=== PATIENT | female | born 1955 | race Caucasian/White ===

== ENCOUNTER 2017-03-19 02:06 | Emergency (ER) | payer BC ==
[2017-03-19 02:14] VITALS: BP 129/83
[2017-03-19] MEDS ORDERED: Midazolam 1 MG/ML 2 ML SDV IVPUSH ONE ×2 (02:49→03:22)
[2017-03-19] MEDS ORDERED: Sodium Chloride 0.9% 10 ML Syringe FLUSH PRN (02:49)
[2017-03-19] MEDS ORDERED: HYDROmorphone 1 MG/ML Syringe IVPUSH ONE (02:49)
[2017-03-19] MEDS ORDERED: Sodium Chloride 0.9% 1,000 ML IV SCH (03:00)
[2017-03-19] MEDS ORDERED: HYDROmorphone 1 MG/ML Syringe IVPUSH STA (03:22)
--- NOTE | 2017-03-19 03:47 | EDM.PDOC ---
ED HPI GENERAL MEDICAL PROBLEM - General Chief Complaint: Upper Extremity Injury/Pain Stated Complaint: "I THINK I BROKE MY LEFT WRIST" Time Seen by Provider: 03/19/17 02:41 - History of Present Illness INITIAL COMMENTS - FREE TEXT/NARRATIVE: Feel after gettin up to the bathroom. C/o left wrist pain and swelling Duration: Minutes: Location: Reports: Lower Extremity, Left Quality: Reports: Dull Severity: Severe Worsens with: Reports: Movement Left Arm Pain Score (Numeric/FACES): 3 - Related Data Allergies Allergy/AdvReac Type Severity Reaction Status Date / Time No Known Allergies Allergy Verified 03/19/17 02:09 Home Meds: Home Meds Aspirin [Lo-Dose Aspirin EC] 81 mg PO DAILY 03/19/17 [History] Past Medical History - Infectious Disease History Infectious Disease History: Reports: Other (See Below) Other Infectious Disease History: [place] [facility]IRUS Social & Family History - Tobacco Use Smoking Status *Q: Current Every Day Smoker Years of Tobacco use: 40 Packs/Tins Daily: 1 Second Hand Smoke Exposure: Yes Review of Systems - Review of Systems Review Of Systems: ROS reveals no pertinent complaints other than HPI. ED EXAM, GENERAL - Physical Exam Exam: See Below Free Text/Narrative:: obvious deformation of the left wrist noted with swelling and decreased rom. ED TRAUMA EXTREMITY PROCEDURES - Additional/Other Procedure(s) Other (Free Text) Procedure(s): After obtaining consent, an IV of NS was started on patient. the patient was placed on a instrumentation engineer, O2 sat monitor, and BP monitor. oxygen per nc was started. IV dilauded and Versed were given until adequate conscious sedation was achieved, and a closed reduction of the left wrist was performed straightening the obvious deformity in the wrist. post reduction x-rays showed some improvement in alignment. splint was placed while patient was still sedated. patient tolerated the procedure well with no complications noted. will extend the patents ER stay for a recovery period Course - Vital Signs Last Recorded V/S: Last Vital Signs Temp 96.8 F 03/19/17 02:13 Pulse 102 H 03/19/17 02:13 Resp 18 03/19/17 02:13 BP 129/83 03/19/17 02:13 Pulse Ox 100 03/19/17 02:13 - Orders/Labs/Meds Orders: Active Orders 24 hr Category Date Time Status Wrist 2V Rt [CR] Stat Exams 03/19/17 03:18 Taken Wrist Comp Min 3V Lt [CR] Stat Exams 03/19/17 02:29 Taken Sodium Chloride 0.9% [Normal Saline] 1,000 ml Med 03/19/17 03:00 Active IV ASDIRECTED Sodium Chloride 0.9% [Saline Flush] Med 03/19/17 02:49 Active 10 ml FLUSH ASDIRECTED PRN Saline Lock Insert [OM.PC] Routine Oth 03/19/17 02:49 Ordered Medication Orders Sodium Chloride (Normal Saline) 1,000 mls @ 100 mls/hr IV ASDIRECTED DARCY Sodium Chloride (Saline Flush) 10 ml FLUSH ASDIRECTED PRN PRN Reason: Keep Vein Open Meds: Medications Generic Name Dose Route Start Last Admin Trade Name Freq PRN Reason Stop Dose Admin Sodium Chloride 1,000 mls @ 100 mls/hr 03/19/17 03:00 Normal Saline IV ASDIRECTED DARCY Sodium Chloride 10 ml 03/19/17 02:49 Saline Flush FLUSH ASDIRECTED PRN Keep Vein Open Discontinued Medications Generic Name Dose Route Start Last Admin Trade Name Freq PRN Reason Stop Dose Admin Hydromorphone HCl 1 mg 03/19/17 02:49 Dilaudid IVPUSH 03/19/17 02:50 ONETIME ONE Hydromorphone HCl 1 mg 03/19/17 03:22 Dilaudid IVPUSH 03/19/17 03:23 Q1H STA Midazolam HCl 2 mg 03/19/17 02:49 Versed 1 Mg/Ml IVPUSH 03/19/17 02:50 ONETIME ONE Midazolam HCl 1 mg 03/19/17 03:22 Versed 1 Mg/Ml IVPUSH 03/19/17 03:23 ONETIME ONE Departure - Departure Time of Disposition: 08:00 (Will hold in extended ER for sedation recovery, and referral to ortho.) Disposition: Home, Self-Care 01 Condition: Good Clinical Impression: Fracture of radius and ulna, Wrist fracture - Discharge Information Instructions: Wrist Fracture Treated With Immobilization, [id number] Forms: ED Department Discharge Additional Instructions: Follow up with the clinic for referral to an ortho doctor in [place]. Take pain medications as prescribed. - My Orders Last 24 Hours: My Active Orders 03/19/17 02:29 Wrist Comp Min 3V Lt [CR] Stat 03/19/17 02:49 Sodium Chloride 0.9% [Saline Flush] 10 ml FLUSH ASDIRECTED PRN Saline Lock Insert [OM.PC] Routine 03/19/17 03:00 Sodium Chloride 0.9% [Normal Saline] 1,000 ml IV ASDIRECTED 03/19/17 03:18 Wrist 2V Rt [CR] Stat - Assessment/Plan Last 24 Hours: My Active Orders 03/19/17 02:29 Wrist Comp Min 3V Lt [CR] Stat 03/19/17 02:49 Sodium Chloride 0.9% [Saline Flush] 10 ml FLUSH ASDIRECTED PRN Saline Lock Insert [OM.PC] Routine 03/19/17 03:00 Sodium Chloride 0.9% [Normal Saline] 1,000 ml IV ASDIRECTED 03/19/17 03:18 Wrist 2V Rt [CR] Stat
[2017-03-19] MEDS ORDERED: Acetaminophen/HYDROcodone 325-5 MG Tab PO ONE (05:38)
== END 2017-03-19 07:55 | disposition home or self-care (01) ==
LOC: CC.ED 02:06 → MERGE 02:06 → CC.ED 07:55
DX: S52.502A Unspecified fracture of the lower end of left radius, initial encounter for closed fracture (principal); S52.602A Unspecified fracture of lower end of left ulna, initial encounter for closed fracture; F17.210 Nicotine dependence, cigarettes, uncomplicated; Z79.82 Long term (current) use of aspirin; W19.XXXA Unspecified fall, initial encounter; Y92.89 Other specified places as the place of occurrence of the external cause
CPT/HCPCS: 25605; 73100; 73110; 96361; 96374; 99283; A9270; J1170; J2250; J7030; J7050; 96375; 99152

== ENCOUNTER 2018-08-12 09:45 | Emergency (ER) | payer BC ==
[2018-08-12] MEDS ORDERED: Sodium Chloride 0.9% 1,000 ML IV ONE ×2 (10:01→12:52)
[2018-08-12] MEDS ORDERED: Acetaminophen 325 MG Tab PO ONE (10:10)
[2018-08-12] MEDS ORDERED: Sodium Chloride 0.9% 1,000 ML ONE (11:41)
[2018-08-12] MEDS ORDERED: Sodium Chloride 0.9% 1,000 ML IV SCH ×2 (12:00→15:30)
[2018-08-12] MEDS ORDERED: Iopamidol 612 MG/ML 100 ML Bottle IVPUSH ONE (12:04)
[2018-08-12] MEDS ORDERED: Ibuprofen 200 MG Tab PO ONE (12:51)
[2018-08-12] MEDS ORDERED: Levofloxacin/Dextrose 5%-Water 500 MG in Premix Bag 1 BAG IV ONE (12:52)
[2018-08-12 13:52] VITALS: BP 86/49
--- NOTE | 2018-08-12 14:07 | EDM.PDOC ---
ED HPI GENERAL MEDICAL PROBLEM - General Chief Complaint: General Stated Complaint: vomitting Time Seen by Provider: 08/12/18 10:35 Source of Information: Reports: Patient, Family () History Limitations: Reports: No Limitations - History of Present Illness INITIAL COMMENTS - FREE TEXT/NARRATIVE: States that on Sunday she had vomiting most of the day. She last vomited Sunday night. Has had some lose stools but not diarrhea. on and off since then. Does not know that if she had a fever over the weekend as she did not have a thermometer. She did not eat or drink much yesterday. She does have some lower left quadrant pain. Has not had any bloody stools. Was treated for Klebsiella UTI about a month ago and has felt well since then. Denies any dysuria at this time. Denies any other discomfort. When arriving here her temp was 104. and was tachycardic. Blood and urine cultures were obtained. Did have toe on her right foot amputated in January and it has been healing well. No redness noted to the foot. Onset: Gradual Location: Reports: Abdomen Associated Symptoms: Reports: Cough, Fever/Chills. Denies: Shortness of Breath Left Lower Abdominal Pain Score (Numeric/FACES): 4 - Related Data Allergies Allergy/AdvReac Type Severity Reaction Status Date / Time Sulfa (Sulfonamide Allergy Other Verified 08/12/18 10:49 Antibiotics) Home Meds: Home Meds Aspirin [Lo-Dose Aspirin EC] 81 mg PO DAILY 03/19/17 [History] Alendronate Sodium [Fosamax] 70 mg PO WEEKLY 10/01/17 [History] metFORMIN [Glucophage] 850 mg PO BID 10/01/17 [History] Clopidogrel [Plavix] 75 mg PO DAILY 08/12/18 [History] Gabapentin [Neurontin] 300 mg PO DAILY 08/12/18 [History] Gabapentin [Neurontin] 600 mg PO BEDTIME 08/12/18 [History] Lactobac Cmb #3/Fos/Pantethine [Probiotic & Acidophilus] 1 cap PO DAILY [History] Lisinopril 10 mg PO DAILY 08/12/18 [History] Multivitamin [Multivitamins] 1 tab PO DAILY 08/12/18 [History] Ubidecarenone [Coq-10] 1 tab PO DAILY 08/12/18 [History] Past Medical History Cardiovascular History: Reports: Hypertension, Other (See Below) Other Cardiovascular History: PAD Endocrine/Metabolic History: Reports: Diabetes, Type II - Infectious Disease History Infectious Disease History: Reports: Other (See Below) Other Infectious Disease History: [place] [facility]IR[facility] - Past Surgical History Musculoskeletal Surgical History: Reports: Amputation Other Musculoskeletal Surgeries/Procedures:: R SECOND TOE, L WRIST PLATE Social & Family History - Family History Family Medical History: Noncontributory - Tobacco Use Smoking Status *Q: Former Smoker Used Tobacco, but Quit: Yes Month/Year Tobacco Last Used: NOVEMBER 2017 - Recreational Drug Use Recreational Drug Use: No - Living Situation & Occupation Living situation: Reports: , with Spouse Occupation: Employed ED ROS GENERAL - Review of Systems Review Of Systems: See Below Constitutional: Reports: Fever, Weakness, Decreased Appetite HEENT: Reports: No Symptoms Respiratory: Reports: Cough. Denies: Shortness of Breath, Sputum Cardiovascular: Denies: Chest Pain, Edema GI/Abdominal: Reports: Abdominal Pain, Anorexia, Decreased Appetite. Denies: Bloody Stool : Denies: Dysuria, Frequency, Pain Musculoskeletal: Reports: No Symptoms Skin: Reports: No Symptoms Neurological: Reports: No Symptoms ED EXAM, GENERAL - Physical Exam Exam: See Below Exam Limited By: No Limitations General Appearance: Alert, Moderate Distress Eye Exam: Bilateral Eye: PERRL Ears: Normal External Exam, Normal Canal, Normal TMs Nose: Normal Inspection Throat/Mouth: Normal Inspection, Normal Oropharynx, No Airway Compromise Head: Atraumatic, Normocephalic Neck: Normal Inspection, Supple, Non-Tender, Full Range of Motion Respiratory/Chest: No Respiratory Distress, Lungs Clear, Normal Breath Sounds Cardiovascular: Regular Rate, Rhythm, No Edema, Tachycardia Peripheral Pulses: 4+: Carotid (L), Carotid (R) GI/Abdominal: Normal Bowel Sounds, Soft, Tender (to the lower left abdomen.) Back Exam: Normal Inspection Extremities: Normal Range of Motion, Non-Tender, No Pedal Edema, Normal Capillary Refill Neurological: Alert, Oriented Skin Exam: Warm, Dry, Intact Course - Vital Signs Last Recorded V/S: Last Vital Signs Temp 100 F 08/12/18 13:52 Pulse 83 08/12/18 13:52 Resp 18 08/12/18 13:52 BP 86/49 L 08/12/18 13:52 Pulse Ox 96 08/12/18 13:52 - Orders/Labs/Meds Orders: Active Orders 24 hr Category Date Time Status Abdomen Pelvis w Cont [CT] Stat Exams 08/12/18 11:46 Taken Chest 2V [CR] Stat Exams 08/12/18 10:45 Taken CULTURE BLOOD [BC] Stat Lab 08/12/18 10:00 Received CULTURE BLOOD [BC] Stat Lab 08/12/18 10:00 Received CULTURE URINE [RM] Routine Lab 08/12/18 10:42 Received Sodium Chloride 0.9% [Normal Saline] 1,000 ml Med 08/12/18 12:00 Active IV ASDIRECTED Blood Culture x2 Reflex Set [OM.PC] Stat Oth 08/12/18 10:10 Ordered Medication Orders Sodium Chloride (Normal Saline) 1,000 mls @ 200 mls/hr IV ASDIRECTED DARCY Last Admin: 08/12/18 11:59 Dose: 200 mls/hr Labs: Laboratory Tests 08/12/18 08/12/18 08/12/18 Range/Units 10:00 10:00 10:00 WBC 8.2 (5.0-10.0) 10^3/uL RBC 4.57 (4.00-5.50) 10^6/uL Hgb 13.8 (12.0-16.0) g/dL Hct 39.5 (37.0-47.0) % MCV 86.4 (82.0-94.0) fL MCH 30.2 (27.0-32.0) pg MCHC 34.9 (33.0-38.0) g/dL RDW Coeff of Delisa 15.0 (11.0-15.0) % Plt Count 40 L* (150-400) 10^3/uL Add Manual Diff Yes Neutrophils % (Manual) 77 (35-85) % Band Neutrophils % 9 H (0-5) % Lymphocytes % (Manual) 4 L (21-55) % Monocytes % (Manual) 10 (2-12) % Absolute Neutrophils 7.05 H (1.80-7.00) 10^3/uL Lymphocytes # (Manual) 0.33 L (1.00-4.80) 10^3/uL Monocytes # (Manual) 0.82 H (0.00-0.80) 10^3/uL Vacuolated Monocytes 2+ moderate H (NOT SEEN) Sodium 129 L (136-145) mEq/L Potassium 3.6 D (3.5-5.0) mEq/L Chloride 91 L (98-106) mEq/L Carbon Dioxide 23 (21-32) mmol/L BUN 46 H D (7-18) mg/dL Creatinine 1.2 H D (0.6-1.0) mg/dL Est Cr Clr Drug Dosing 34.91 mL/min Estimated GFR (MDRD) 46 L (>=60) mL/min Glucose 229 H D (75-99) mg/dL Calcium 8.9 (8.4-10.1) mg/dL Total Bilirubin 1.2 H (0.0-1.0) mg/dL AST 27 (15-37) U/L ALT 28 (12-78) U/L Alkaline Phosphatase 211 H (46-116) U/L C-Reactive Protein 36.6 H (0.2-0.8) mg/dL Total Protein 7.7 (6.4-8.2) g/dL Albumin 2.4 L (3.4-5.0) g/dL Amylase (25-115) U/L Urine Color Yellow (YELLOW) Urine Appearance Clear (CLEAR) Urine pH 5.0 (4.5-8.0) Ur Specific [place] 1.020 (1.003-1.020) Urine Protein 100 H (NEGATIVE) mg/dL Urine Glucose (UA) Negative (NEGATIVE) mg/dL Urine Ketones 15 H (NEGATIVE) mg/dL Urine Occult Blood Moderate H (NEGATIVE) Urine Nitrite Negative (NEGATIVE) Urine Bilirubin Negative (NEGATIVE) Urine Urobilinogen 0.2 (0.2-1.0) EU/dL Ur Leukocyte Esterase Negative (NEGATIVE) Urine RBC 0-5 (0-5) /HPF Urine WBC 5-10 H (0-5) /HPF Urine Bacteria Many H (NOT SEEN) /HPF Urinalysis Comment 08/12/18 Range/Units 11:58 WBC (5.0-10.0) 10^3/uL RBC (4.00-5.50) 10^6/uL Hgb (12.0-16.0) g/dL Hct (37.0-47.0) % MCV (82.0-94.0) fL MCH (27.0-32.0) pg MCHC (33.0-38.0) g/dL RDW Coeff of Delisa (11.0-15.0) % Plt Count (150-400) 10^3/uL Add Manual Diff Neutrophils % (Manual) (35-85) % Band Neutrophils % (0-5) % Lymphocytes % (Manual) (21-55) % Monocytes % (Manual) (2-12) % Absolute Neutrophils (1.80-7.00) 10^3/uL Lymphocytes # (Manual) (1.00-4.80) 10^3/uL Monocytes # (Manual) (0.00-0.80) 10^3/uL Vacuolated Monocytes (NOT SEEN) Sodium (136-145) mEq/L Potassium (3.5-5.0) mEq/L Chloride (98-106) mEq/L Carbon Dioxide (21-32) mmol/L BUN (7-18) mg/dL Creatinine (0.6-1.0) mg/dL Est Cr Clr Drug Dosing mL/min Estimated GFR (MDRD) (>=60) mL/min Glucose (75-99) mg/dL Calcium (8.4-10.1) mg/dL Total Bilirubin (0.0-1.0) mg/dL AST (15-37) U/L ALT (12-78) U/L Alkaline Phosphatase (46-116) U/L C-Reactive Protein (0.2-0.8) mg/dL Total Protein (6.4-8.2) g/dL Albumin (3.4-5.0) g/dL Amylase 12 L (25-115) U/L Urine Color (YELLOW) Urine Appearance (CLEAR) Urine pH (4.5-8.0) Ur Specific [place] (1.003-1.020) Urine Protein (NEGATIVE) mg/dL Urine Glucose (UA) (NEGATIVE) mg/dL Urine Ketones (NEGATIVE) mg/dL Urine Occult Blood (NEGATIVE) Urine Nitrite (NEGATIVE) Urine Bilirubin (NEGATIVE) Urine Urobilinogen (0.2-1.0) EU/dL Ur Leukocyte Esterase (NEGATIVE) Urine RBC (0-5) /HPF Urine WBC (0-5) /HPF Urine Bacteria (NOT SEEN) /HPF Urinalysis Comment Meds: Medications Generic Name Dose Route Start Last Admin Trade Name Freq PRN Reason Stop Dose Admin Sodium Chloride 1,000 mls @ 200 mls/hr 08/12/18 12:00 08/12/18 11:59 Normal Saline IV 200 mls/hr ASDIRECTED DARCY Administration Discontinued Medications Generic Name Dose Route Start Last Admin Trade Name Ladan PRN Reason Stop Dose Admin Acetaminophen 650 mg 08/12/18 10:10 08/12/18 10:18 Tylenol PO 08/12/18 10:11 650 mg NOW ONE Administration Sodium Chloride 1,000 mls @ 999 mls/hr 08/12/18 10:01 08/12/18 10:34 Normal Saline IV 08/12/18 11:01 999 mls/hr .BOLUS ONE Administration Sodium Chloride Confirm 08/12/18 11:41 08/12/18 11:57 Normal Saline Administered 08/12/18 11:42 Not Given Dose 1,000 mls @ as directed .ROUTE .STK-MED ONE Levofloxacin/Dextrose 500 mg/ 100 mls @ 100 mls/hr 08/12/18 12:52 08/12/18 13 :05 Premix IV 08/12/18 13:51 100 mls/hr ONETIME ONE Administration Sodium Chloride 1,000 mls @ 999 mls/hr 08/12/18 12:52 08/12/18 13:18 Normal Saline IV 08/12/18 13:52 999 mls/hr .BOLUS ONE Administration Ibuprofen 600 mg 08/12/18 12:51 08/12/18 13:06 Motrin PO 08/12/18 12:52 600 mg ONETIME ONE Administration Iopamidol 100 ml 08/12/18 12:04 08/12/18 12:06 Isovue-300 (61%) IVPUSH 08/12/18 12:05 100 ml ONETIME ONE Administration - Re-Assessments/Exams Free Text/Narrative Re-Assessment/Exam: 08/12/18 14:10 BP has been hypotensive since shortly after arriving. She has had 2 liter bolus of NS and BP is still low, Third liter is now bolusing. Labs reviewed with Dr. Baird. CT abdomen is normal. Blood and Urine cultures are pending. 1400- Contacted Dr. Pina hospitalist at [facility] and he will accept in transfer for further workup of possible sepsis with hypotension not responding to fluids NOTE THAT PT DID HAVE CONTRAST CT AND NEEDS TO HOLD METFORMIN. Risks and benefits of transfer discussed with family and pt to include the need for higher level of care and specialist. Risk of being transferred include risk of MVA and getting worse enroute. Benefits of staying are none. Risks of staying is worsening of symptoms and potential of without further testing. Departure - Departure Time of Disposition: 14:16 Disposition: DC/Tfer to [facility] 02 Condition: Serious Clinical Impression: Sepsis associated hypotension - Discharge Information *PRESCRIPTION DRUG MONITORING PROGRAM REVIEWED*: Not Applicable *COPY OF PRESCRIPTION DRUG MONITORING REPORT IN PATIENT JELANI: Not Applicable Instructions: Sepsis, Adult Referrals: Cyndie English PA [Primary Care Provider] - - Problem List & Annotations (1) Sepsis associated hypotension SNOMED Code(s): 66760397 Code(s): A41.9 - SEPSIS, UNSPECIFIED ORGANISM; I95.9 - HYPOTENSION, UNSPECIFIED Status: Acute Priority: High Current Visit: Yes - Problem List Review Problem List Initiated/Reviewed/Updated: Yes - My Orders Last 24 Hours: My Active Orders 08/12/18 10:00 CULTURE BLOOD [BC] Stat CULTURE BLOOD [BC] Stat 08/12/18 10:10 Blood Culture x2 Reflex Set [OM.PC] Stat 08/12/18 10:42 CULTURE URINE [RM] Routine 08/12/18 10:45 Chest 2V [CR] Stat 08/12/18 11:46 Abdomen Pelvis w Cont [CT] Stat 08/12/18 12:00 Sodium Chloride 0.9% [Normal Saline] 1,000 ml IV ASDIRECTED - Assessment/Plan Last 24 Hours: My Active Orders 08/12/18 10:00 CULTURE BLOOD [BC] Stat CULTURE BLOOD [BC] Stat 08/12/18 10:10 Blood Culture x2 Reflex Set [OM.PC] Stat 08/12/18 10:42 CULTURE URINE [RM] Routine 08/12/18 10:45 Chest 2V [CR] Stat 08/12/18 11:46 Abdomen Pelvis w Cont [CT] Stat 08/12/18 12:00 Sodium Chloride 0.9% [Normal Saline] 1,000 ml IV ASDIRECTED
[2018-08-12] MEDS ORDERED: Piperacillin/Tazobactam 3.375 GM in Sodium Chloride 0.9% 50 ML IV SCH (15:30)
== END 2018-08-12 15:32 ==
LOC: CC.ED 09:45
DX: A41.9 Sepsis, unspecified organism (principal); I95.9 Hypotension, unspecified; E11.9 Type 2 diabetes mellitus without complications; I10 Essential (primary) hypertension; Z88.2 Allergy status to sulfonamides; Z79.82 Long term (current) use of aspirin; Z79.84 Long term (current) use of oral hypoglycemic drugs; Z79.01 Long term (current) use of anticoagulants; Z87.891 Personal history of nicotine dependence
CPT/HCPCS: 36415; 71046; 74177; 80053; 81001; 82150; 85025; 86140; 87040; 87086; 87088; 87186; 96360; 96361; 96365; 96375; 99285; A9270; J1956; J2543; J7030; J7050; Q9967; 87077

== ENCOUNTER 2021-12-24 15:09 | Emergency (ER) | payer BC ==
[2021-12-24 15:14] VITALS: BP 153/81; PULSE 101
[2021-12-24] MEDS ORDERED: Sodium Chloride 0.9% 10 ML Syringe FLUSH PRN ×2 (15:19→15:22)
[2021-12-24] MEDS ORDERED: Acetaminophen 500 MG Tab PO ONE (15:19)
[2021-12-24] MEDS ORDERED: Sodium Chloride 0.9% 1,000 ML IV SCH ×2 (15:30→17:00)
[2021-12-24 16:03] LABS: CHLORIDE,CL 100 mEq/L (98-106); SODIUM,NA 140 mEq/L (136-145)
[2021-12-24] MEDS ORDERED: Iopamidol 755 Mg/ML 100 ML Bottle IVPUSH ONE (16:22)
[2021-12-24 16:23] LABS: CORONAVIRUS COVID-19 NAA NEGATIVE (NEGATIVE); RESPIRATORY SYNCYTIAL VIR NAA NEGATIVE (NEGATIVE)
[2021-12-24] MEDS ORDERED: cefTRIAXone 1 GM Vial IVPUSH ONE (16:50)
[2021-12-24] MEDS ORDERED: Take Home: Cephalexin 500 MG Cap, 4 Cap Pack PO ONE (17:15)
== END 2021-12-24 18:38 | disposition home or self-care (01) ==
LOC: CC.ED 15:09
DX: R50.9 Fever, unspecified (principal); R82.71 Bacteriuria; I10 Essential (primary) hypertension; E11.9 Type 2 diabetes mellitus without complications; Z88.2 Allergy status to sulfonamides; Z79.82 Long term (current) use of aspirin; Z79.02 Long term (current) use of antithrombotics/antiplatelets; Z79.899 Other long term (current) drug therapy; Z20.822 Contact with and (suspected) exposure to COVID-19
CPT/HCPCS: 0241U; 36415; 71046; 74177; 80053; 81001; 83605; 84484; 85025; 86140; 87040; 87086; 93005; 96374; 99284; 99284-25; A9270-GY; J0696; J7030; Q9967

== ENCOUNTER 2024-04-07 04:25 | Emergency (ER) | payer BC, MEDICARE ==
[2024-04-07 04:29] VITALS: BP 150/80; PULSE 88
[2024-04-07] MEDS: Oxymetazoline 0.05% Nasal Spray 30 ML Bottle NAS ONE (05:09)
== END 2024-04-07 05:31 | disposition home or self-care (01) ==
LOC: CC.ED 04:25
DX: R04.0 Epistaxis (principal); I10 Essential (primary) hypertension; E11.9 Type 2 diabetes mellitus without complications; Z79.84 Long term (current) use of oral hypoglycemic drugs; Z79.899 Other long term (current) drug therapy; Z88.5 Allergy status to narcotic agent
CPT/HCPCS: 99283

== ENCOUNTER 2024-12-22 16:50 | Emergency (ER) | payer BC, MEDICARE ==
[2024-12-22 17:51] LABS: BASOPHILS ABSOLUTE AUTO 0.05 10^3/uL (0.00-0.50); BASOPHILS PERCENT AUTO 0.4 % (0-1); HEMATOCRIT 29.2 % (37.0-47.0); HEMOGLOBIN 8.6 g/dL (12.0-16.0); IMMATURE GRAN ABSOLUTE AUTO 0.03 10^3/uL (0.00-0.49); IMMATURE GRAN PERCENT AUTO 0.2 % (0.0-4.9); LYMPHOCYTES ABSOLUTE AUTO 0.83 10^3/uL (0.60-5.00); LYMPHOCYTES PERCENT AUTO 5.9 % (24-44); MEAN CORPUSCULAR HEMOGLOBIN 30.5 pg (27.0-32.0); MEAN CORPUSCULAR HGB CONC 29.5 g/dL (32.0-36.0); MEAN CORPUSCULAR VOLUME 103.5 fL (83.0-97.0); MONOCYTES PERCENT AUTO 7.8 % (0-10); NEUTROPHILS ABSOLUTE AUTO 12.05 x10^3/uL (1.80-8.00); NEUTROPHILS PERCENT AUTO 85.7 % (41-71); PLATELET COUNT,PLT 205 10^3/uL (150-400); RED BLOOD CELL COUNT 2.82 x10^6/uL (4.00-5.50); WHITE BLOOD CELL COUNT,WBC 14.1 10^3/uL (4.0-11.0)
[2024-12-22 18:05] LABS: ALANINE AMINOTRANSFERASE,ALT 17 U/L (12-78); ALBUMIN 2.8 g/dL (3.4-5.0); ALKALINE PHOSPHATASE 66 U/L (46-116); ASPARTATE AMNIOTRANSFERASE,AST 19 U/L (15-37); BILIRUBIN TOTAL 0.7 mg/dL (0.0-1.0); BLOOD UREA NITROGEN,BUN 18 mg/dL (7-18); C-REACTIVE PROTEIN 7.42 mg/dL (<=0.50); CALCIUM 9.4 mg/dL (8.4-10.1); CARBON DIOXIDE,CO2 28 mmol/L (21-32); CHLORIDE,CL 99 mEq/L (98-106); CREATININE 1.1 mg/dL (0.6-1.0); GLUCOSE RANDOM 205 mg/dL (75-99); POTASSIUM,K 3.8 mEq/L (3.5-5.0); PROTEIN TOTAL,TP 8.3 g/dL (6.4-8.2); SODIUM,NA 139 mEq/L (136-145)
[2024-12-22 18:08] LABS: LACTIC ACID 1.9 mmol/L (0.4-2.0)
[2024-12-22 18:09] LABS: ESTIMATED GFR 54 mL/min (>=60)
[2024-12-22 18:25] LABS: CORONAVIRUS COVID-19 NAA NEGATIVE (NEGATIVE); INFLUENZA A NAA NEGATIVE (NEGATIVE); INFLUENZA B NAA NEGATIVE (NEGATIVE); RESPIRATORY SYNCYTIAL VIR NAA NEGATIVE (NEGATIVE)
[2024-12-22] MEDS: Acetaminophen 325 MG Tab PO ONE (19:06)
[2024-12-22] MEDS: Piperacillin/Tazobactam 4.5 GM in Sodium Chloride 0.9% 100 ML IV ONE (19:32)
[2024-12-22 20:04] VITALS: BP 133/63; PULSE 84
[2024-12-23 06:56] LABS: APPEARANCE,URINE CLEAR (CLEAR); COLOR,URINE YELLOW (YELLOW); GLUCOSE,URINE NEGATIVE (NEGATIVE); KETONES,URINE NEGATIVE (NEGATIVE); PROTEIN,URINE 100 mg/dL (NEGATIVE)
[2024-12-23 06:57] LABS: BACTERIA,URINE OCCASIONAL /HPF (NOT SEEN); BILIRUBIN,URINE NEGATIVE (NEGATIVE); EPITHELIAL CELLS,URINE OCCASIONAL /HPF (NOT SEEN); LEUKOCYTE ESTERASE,URINE SMALL (NEGATIVE); MUCUS,URINE FEW /HPF (NOT SEEN); NITRITE,URINE NEGATIVE (NEGATIVE); OCCULT BLOOD,URINE NEGATIVE (NEGATIVE); RBC,URINE 0-5 /HPF (0-5); UROBILINOGEN,URINE 0.2 EU/dL (0.2-1.0); WBC,URINE 0-5 /HPF (0-5)
== END 2024-12-22 20:30 | disposition critical access hospital (66) ==
LOC: CC.ED 16:50
DX: R41.0 Disorientation, unspecified (principal); R09.02 Hypoxemia; R50.9 Fever, unspecified; I10 Essential (primary) hypertension; E11.9 Type 2 diabetes mellitus without complications; Z89.431 Acquired absence of right foot; Z88.2 Allergy status to sulfonamides; Z79.899 Other long term (current) drug therapy; Z79.01 Long term (current) use of anticoagulants; Z79.84 Long term (current) use of oral hypoglycemic drugs
CPT/HCPCS: 0241U; 36415; 71045; 80053; 81001; 83605; 85025; 86140; 87040; 96365; 99284; 99285-25; A9270-GY; J2543

== ENCOUNTER 2025-03-24 13:27 | Inpatient (IN) | payer BC, MEDICARE ==
[2025-03-24] MEDS ORDERED: Ondansetron 4 MG Tab.DIS PO PRN (13:49)
[2025-03-24] MEDS: Acetaminophen/HYDROcodone 325-5 MG Tab PO PRN (14:45)
[2025-03-24] MEDS: Sennosides/Docusate Sodium 50-8.6 MG Tab PO SCH (19:47)
[2025-03-25] MEDS: Cholecalciferol (Vitamin D3) 5,000 UNIT Tab PO SCH (07:27)
[2025-03-25] MEDS: Ferrous Sulfate 324 MG Tab.EC PO SCH (07:27)
[2025-03-25] MEDS: OMEGA Q PLUS PO SCH (08:49)
[2025-03-25] MEDS: LYSINE 500 MG PO SCH (08:49)
[2025-03-25] MEDS: Acetaminophen/HYDROcodone 325-5 MG Tab PO PRN ×2 (15:03→23:16)
[2025-03-26] MEDS ORDERED: Sennosides/Docusate Sodium 50-8.6 MG Tab PO PRN (08:49)
[2025-03-31 12:38] VITALS: BP 139/72; PULSE 76
== END 2025-03-31 12:42 | disposition home or self-care (01) | DRG 861 ==
LOC: CC.MS 13:27 → UNDOADMIN 13:27 → CC.MS 13:49
PROVIDERS: ADMIT Physician Assistant Medical; ATTEND Physician Assistant Medical
DX: R53.81 Other malaise (principal); I10 Essential (primary) hypertension; N20.0 Calculus of kidney; E11.9 Type 2 diabetes mellitus without complications; Z88.2 Allergy status to sulfonamides; Z88.8 Allergy status to other drugs, medicaments and biological substances; Z79.01 Long term (current) use of anticoagulants; Z79.82 Long term (current) use of aspirin; Z79.899 Other long term (current) drug therapy; Z79.84 Long term (current) use of oral hypoglycemic drugs; Z98.890 Other specified postprocedural states; Z87.891 Personal history of nicotine dependence
CPT/HCPCS: 82947; 97110-GP; 97161-GP; 97530-GP; A9270-GY